=== PATIENT | male | born 1980 | race Two or more races ===

== ENCOUNTER → 2018-04-26 13:43 | Outpatient (CLI) | payer OTHER, SELFPAY ==
--- NOTE | 2018-04-26 13:45 | RAD_ITS ---
STUDY: X-RAY - LEFT SHOULDER REASON FOR EXAM: Shoulder pain, no trauma. TECHNIQUE: 3 view(s) of the shoulder. COMPARISON: None. FINDINGS: Normal glenohumeral articulation. Normal acromioclavicular joint. There is mild deformity of the distal clavicle from suspected remote fracture. Normal acromion. Normal humeral head and visualized proximal humerus. The soft tissue structures are unremarkable. Normal visualized pulmonary apex. RAD/Shoulder min 2 Views IMPRESSION: Mild deformity of the distal clavicle from suspected remote fracture. Otherwise, unremarkable x-ray examination of the left shoulder. Electronically Signed: Peter Caldwell MD at 14:27 EDT Tel , Service support ,
== END ==
PROVIDERS: Visit Provider Orthopaedic Surgery
DX: M25.512 Pain in left shoulder (principal)
CPT/HCPCS: 73030

== ENCOUNTER 2018-06-03 16:30 | Outpatient (RCR) | payer OTHER, SELFPAY ==
--- NOTE | 2018-05-06 17:44 | HP.PTEVAL_ITS ---
Patient's Visit Information LARA URIAS is a 37 year old M referred to Physical Therapy by Sharon Camarena DO with a diagnosis of L UT strain and scapular dyskinesis. Date of Evaluation: 05/06/18 Physical Therapist: Surya Ortiz - Visit Plan Frequency: 2x /Week Duration: 4 Weeks Plan: Start with DN/manual therex to LUT and L levator scapulea, LUT and L levator scapulea stretching. Once pain has reduced focus on periscapular strengthening. - Subjective Subjective: Pt. is here today for his initial evaluation with diagnosis of L UT strain and scapular dyskinesis. Pt. reports having increased pain for ~6 months now. He believes it stems from an old football injury. He denies N/T, but does have increased pain into his L shoulder. Pt. reports no weakness as well. He has not trialed any exercises or injections. He did have an xray- showing old AC injury. Increased pain: lifting, using floor clearer machine at work, worse by the end of the day. Decreases: rest. Pt. does have occassional soreness with sleeping. 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 Pt. is hopeful to reduce symptoms in order to get back to recreational activities including basketball without limitations. - Pain L UT Pain Intensity (Out of 10): 1 Pain Intensity Range: 3 - Objective POSTURE: Pt. has rounded shoulders with FH posture. Pt. is able to correct without issues. Pt. has slight deformity at L AC joint, no pain with palpation. PALPATION: Pt. has increased tenderness to LUT and L levator scapulea. No pain on right side of shoulder girdle or neck. NEURO- All intact, normal sensation, no upper limb tension noted. 2+ DTR biceps and triceps bilat. ROM: Cervical spine- flexion/ext full without issues, rotation L mild increase in LUt region, no pain with R rotation. SB normal mild incerase in symptoms with R side bend. Pt. has full B shoulder ROM, mild increase in symptoms at end range shoulder flexion. Slight decrease in L scapular rotation of inferior tip with shoulder flexion and abduction. Slower to engage. MMT- L shoulder- 5/5 throughout without issues. Cervical iso- 5/5 throughout no pain. 4/5 mid trap on L side, 4/5 lower trap on L side. - Special Tests C/S Radiculapathy - Left Upper limb tension test: Negative C/S Radiculapathy - Right Upper limb tension test: Negative C/S Radiculapathy - Left Spurlings: Negative C/S Radiculapathy - Right Spurlings: Negative C/S Radiculapathy - Left Cervical distraction: Negative C/S Radiculapathy - Right Cervical distraction: Negative C/S Radiculapathy - Left Relief test: Negative C/S Radiculapathy - Right Relief test: Negative L Shoulder External Rotation Lag Test - RC Tear: Negative L Shoulder Lift Off Test - Subscapular Tear: Negative L Shoulder Drop Sign - IS Test: Negative L Shoulder Empty Can - SS: Negative L Shoulder Neer - Impingement: Negative L Shoulder Myers Chidi - Impingement: Negative L Shoulder Biceps Load Test - Labrum: Negative L Shoulder Yeargasons - SLAP: Negative L Shoulder Jerk Test - Posterior Inferior Labrum: Negative L Shoulder Apprehension Test - Anterior Instability: Negative L Shoulder Speeds Test - Labrum/Biceps: Negative - Goals Goal 1:: Pt. to be I with HEP. Goal Time Frame: 4-6 Weeks Goal 2:: Pt. to have no pain with all work related activities. Goal Time Frame: 4-6 Weeks Goal 3:: Pt. to have decreased LUT and L levator scapulea muscle tone with palpation. Goal Time Frame: 4-6 Weeks Goal 4:: Pt. to resume all recreational activities without increase in symptoms. Goal Time Frame: 4-6 Weeks Goal 5:: Pt. to have increased periscapular strength by 1/2 grade. Goal Time Frame: 4-6 Weeks Goal 6:: Pt. to have symmetrical scapular movement with all overhead activities. Goal Time Frame: 4-6 Weeks - Rehabilitation Potential Physical Therapy Diagnosis: L UT strain and scapular dyskinesis. Pt. presents with L UT and L levator scapulea strain, most likely due to overuse due to mid trap/rhomboid weakness. Pt. would benefit from tissue inhibition including DN, massage and stretching, followed by scapular strengthening to promote proper use of L shoulder. Rehabilitation Potential: Excellent - Anticipated Interventions Patient/Client Instruction: Educate patient on: Condition, Plan of Care, Risk Factors, Benefits of Fitness Program For the Purpose of:: To improve decision making, To facilitate caregiver knowledge, To improve self management, To prevent re-injury, To improve ability to perform tasks related to life management, To improve tolerance to ADL's Therapeutic Exercise to Include: Strength training, Postural training, Flexibilty training, Passive ROM, Active ROM, Sarah Exercises, Scapular Strength/Stabilization For the Purpose of:: To decrease pain, To decrease swelling/inflammation, To increase ROM, To improve nutrient delivery to tissue, To improve health of tissue, To decrease soft tissue restriction Manual Therapy Techniques to Include: Trigger point massage, Massage, Mobilization, Functional dry needling, Soft tissue mobilization For the Purpose of:: To decrease pain, To decrease swelling/inflammation, To increase ROM, To improve nutrient delivery to tissue, To increase oxygenation perfusion, To improve muscle performance and motor function, To improve health of tissue, To decrease soft tissue restriction, To increase flexibility/ROM Ultrasound (thermal/non thermal): Yes For the Purpose of:: To decrease pain, To increase ROM Thank you for the opportunity to evaluate your patient. For Medicare and Medicare HMO plans, please review the plan of care and approve it. It will need to be FAXED BACK to us at [phone] for Medicare purposes. Please let me know if there are questions or concerns regarding this plan of care. Physician Signature: Date:
--- NOTE | 2018-06-07 11:41 | HP.PTDCSUM ---
HP - PT D/C Summary It has been my pleasure to treat LARA URIAS under orders from Sharon Camarena DO, for the diagnosis of L UT strain and scapular dyskinesis for a total of 9 visit(s). Discharge Date: 06/03/18 Please see the following information for a summary of their discharge status. - Subjective Subjective: Pt. reports 'I am doing great, I really don't have any pain.' Pt. reports no pain. Pt. reports being 100% better overall. Pt. is HEP compliant without adverse reaction. - Pain L UT Pain Intensity (Out of 10): 0 - Overall Improvement % Improvement: 100 - Objective Objective/Function: Pt. tolerated PT very well. Pt. no longer has any pain. He has progressed very with scapular and shoulder strengthening. Pt. is no longer having any pain with over head or work activities. He is back to playing backetball without limitatons. MMT- L shoulder- flexion 5/5, abd 5/5, ER 5/5, IR 5/5, ext 5/5. Pt. has full motion of R shoulder without reports of increased pain at GH or scapular regions. - Goals Goal 1:: Pt. to be I with HEP. Goal Progress: Goal Met Goal 2:: Pt. to have no pain with all work related activities. Goal Progress: Goal Met Goal 3:: Pt. to have decreased LUT and L levator scapulea muscle tone with palpation. Goal Progress: Goal Met Goal 4:: Pt. to resume all recreational activities without increase in symptoms. Goal Progress: Goal Met Goal 5:: Pt. to have increased periscapular strength by 1/2 grade. Goal Progress: Goal Met Goal 6:: Pt. to have symmetrical scapular movement with all overhead activities. - Plan Plan: Pt. to be DC to HEP at this point in time. - D/C Information Discharge Comments: Pt. progressed as expected with PT. Pt. is no longer having pain with any overhead or work activities. Pt. pleased with outcomes. Pt. has normal shoulder and scapular ROM without issues. Pt. is independent with HEP for scapular and shoulder strengthening and will be DC from PT at this point in time. If there are questions or concerns regarding this patient's physical therapy, please feel free to call me at [phone]. Thank you for the referral of this patient. Sincerely, Surya Ortiz
== END 2018-06-03 19:00 | disposition home or self-care (01) ==
LOC: PT 16:30
PROVIDERS: Visit Provider Orthopaedic Surgery
DX: M62.838 Other muscle spasm (principal); M25.312 Other instability, left shoulder
CPT/HCPCS: 97110; 97161; 97530